=== PATIENT | female | born 1965 | race Hispanic/Latino ===

== ENCOUNTER 2021-08-18 10:16 | Inpatient (IN) | payer MEDICARE ==
[~2021-08-18] VITALS: Ht 152.4 cm; Wt 67.4 kg
[~2021-08-18 10:16] MED LIST: SODIUM CHLORIDE FLUSH 10 ML SYR IV PRN
[2021-08-18] MEDS ORDERED: SODIUM CHLORIDE 0.9% 1000ML 1,000 ML IV ONE (10:30)
[2021-08-18 10:50] LABS: BASOPHILS # (AUTO) 0.1 (0.0-0.1); BASOPHILS % 1.4 % (0.0-1.0); EOSINOPHILS # (AUTO) 0.4 (0.0-0.4); EOSINOPHILS % 5.9 % (0.0-6.0); HEMATOCRIT 36.1 % (34.2-44.1); HEMOGLOBIN 11.3 g/dL (12.0-16.0); LYMPHOCYTES # (AUTO) 1.2 (1.0-3.2); LYMPHOCYTES % 17.4 % (18.0-39.1); MEAN CORPUSCULAR HEMOGLOBIN 30.6 pg (28-32); MEAN CORPUSCULAR HGB CONC 31.3 g/dL (31-35); MEAN CORPUSCULAR VOLUME 97.8 fL (81-99); MONOCYTES # (AUTO) 0.7 (0.2-0.8); MONOCYTES % 9.7 % (4.4-11.3); NEUTROPHILS # (AUTO) 4.6 (2.1-6.9); NEUTROPHILS % 64.9 % (38.7-80.0); PLATELET COUNT 424 x10e3/uL (140-360); RED BLOOD COUNT 3.69 x10e6/uL (3.6-5.1); RED CELL DISTRIBUTION WIDTH 15.8 % (11.7-14.4)
[2021-08-18 11:11] LABS: INR 1.13; PROTHROMBIN TIME 15.5 seconds (11.9-14.5)
[2021-08-18 11:12] LABS: PARTIAL THROMBOPLASTIN TIME 39.7 seconds (23.8-35.5)
[2021-08-18] MEDS ORDERED: LEVOTHYROXINE50 MCG PO (12:51)
[2021-08-18] MEDS ORDERED: CLOPIDOGREL75 MG PO (12:51)
[2021-08-18] MEDS ORDERED: LIPITOR10 MG PO (12:51)
[2021-08-18] MEDS ORDERED: FERROUS SULFAT325 M1 PO (12:51)
[2021-08-18] MEDS ORDERED: METOPROLOL TART25 MG PO (12:51)
[2021-08-18] MEDS ORDERED: GABAPENTIN300 MG PO (12:51)
[2021-08-18] MEDS ORDERED: MIDODRINE HCL2.5 MG PO (12:51)
[2021-08-18 14:09] LABS: ALBUMIN 2.4 g/dL (3.5-5.0); ALBUMIN/GLOBULIN RATIO 0.5 (0.8-2.0); ANION GAP 19.7 mmol/L (8-16); CALCIUM 8.6 mg/dL (8.4-10.2); CREATININE, SERUM 5.53 mg/dL (0.57-1.11); POTASSIUM 5.7 mmol/L (3.5-5.1)
[2021-08-18] MEDS ORDERED: ONDANSETRON HCL INJ 2MG/ML 2ML 2 MG/ML VIAL IV PRN (15:15)
[2021-08-18] MEDS ORDERED: ALBUTEROL SULF 0.083% NEB SOLN 3 ML NEB NEB STA (15:51)
[2021-08-18] MEDS ORDERED: INSULIN REGULAR, HUMAN 100 UNIT/1 ML IV ONE (16:00)
[2021-08-18] MEDS ORDERED: DEXTROSE 50% SYRINGE 50 ML IV ONE (16:00)
[2021-08-18 17:55] VITALS: BP 141/68
[2021-08-18 18:22] VITALS: BP 143/57
[2021-08-18 18:27] VITALS: BP 121/65
[2021-08-18 20:00] VITALS: BP 127/52
[2021-08-18] MEDS ORDERED: norco (22:12)
[2021-08-18] MEDS ORDERED: TEMAZEPAM15 MG PO (22:12)
[2021-08-18] MEDS ORDERED: LANTUS 3ML100 UNITS/ (22:12)
[2021-08-18] MEDS ORDERED: DOCUSATE SODIU100 MG PO (22:12)
[2021-08-18] MEDS ORDERED: CYCLOBENZAPRINE10 MG PO (22:12)
[2021-08-19] VITALS (8 sets, daily range): BP systolic 104–142; BP diastolic 47–85
[2021-08-19] MEDS ORDERED: NORCO SCH
[2021-08-19 05:03] LABS: BASOPHILS # (AUTO) 0.1 (0.0-0.1); BASOPHILS % 1.2 % (0.0-1.0); EOSINOPHILS # (AUTO) 0.4 (0.0-0.4); EOSINOPHILS % 6.5 % (0.0-6.0); HEMATOCRIT 35.6 % (34.2-44.1); HEMOGLOBIN 10.9 g/dL (12.0-16.0); LYMPHOCYTES # (AUTO) 1.3 (1.0-3.2); LYMPHOCYTES % 22.1 % (18.0-39.1); MEAN CORPUSCULAR HEMOGLOBIN 29.9 pg (28-32); MEAN CORPUSCULAR HGB CONC 30.6 g/dL (31-35); MEAN CORPUSCULAR VOLUME 97.5 fL (81-99); MONOCYTES # (AUTO) 0.7 (0.2-0.8); MONOCYTES % 11.4 % (4.4-11.3); NEUTROPHILS # (AUTO) 3.4 (2.1-6.9); NEUTROPHILS % 58.3 % (38.7-80.0); PLATELET COUNT 385 x10e3/uL (140-360); RED BLOOD COUNT 3.65 x10e6/uL (3.6-5.1); RED CELL DISTRIBUTION WIDTH 15.7 % (11.7-14.4)
[2021-08-19 05:41] LABS: ANION GAP 21.5 mmol/L (8-16); CALCIUM 8.5 mg/dL (8.4-10.2); CREATININE, SERUM 5.86 mg/dL (0.57-1.11); POTASSIUM 5.5 mmol/L (3.5-5.1)
[2021-08-19] MEDS: LEVOTHYROXINE SODIUM 50 MCG TAB PO SCH (06:34)
[2021-08-19] MEDS: DOCUSATE SODIUM 100 MG CAP PO SCH ×2 (08:26→17:00)
[2021-08-19] MEDS: METOPROLOL TARTRATE 25 MG TAB PO SCH ×2 (08:27→17:00)
[2021-08-19] MEDS: MIDODRINE 2.5 MG TAB PO SCH ×2 (08:27→17:00)
[2021-08-19] MEDS: GABAPENTIN 300 MG CAP PO SCH ×3 (08:27→21:05)
[2021-08-19] MEDS: FERROUS SULFATE 325 MG TAB PO SCH ×2 (08:28→17:00)
[2021-08-19] MEDS: CLOPIDOGREL BISULFATE 75 MG TAB PO SCH (08:28)
[2021-08-19] MEDS: CYCLOBENZAPRINE HCL 10 MG TAB PO SCH (08:28)
[2021-08-19] MEDS ORDERED: ALBUMIN 25% 25GM 100ML 0.25 GM/ML BTL IV ONE (11:45)
[2021-08-19] MEDS ORDERED: ALBUMIN 25% 12.5GM 50ML 150 ML IV ONE (12:00)
[2021-08-19 16:39] LABS: BODY FLUID APPEARANCE CLOUDY; BODY FLUID COLOR RED; BODY FLUID TYPE PERITONEAL
[2021-08-19] MEDS ORDERED: SODIUM CHLORIDE 0.9% 1000ML 2,000 ML ONE (16:41)
[2021-08-19 16:45] LABS: RBC,BODY FLUID 23000 cells/uL; WBC,BODY FLUID 134 cells/uL
[2021-08-19] MEDS ORDERED: ALBUMIN 25% 12.5GM 0.25 GM/ML BTL IV PRN (16:45)
[2021-08-19] MEDS ORDERED: SODIUM CHLORIDE 0.9% 1000ML 2,000 ML IV PRN (16:45)
[2021-08-19] MEDS ORDERED: SODIUM CHLORIDE 0.9% 250ML 500 ML IV PRN (16:45)
[2021-08-19 18:14] LABS: LYMPHOCYTES,BODY FLUID 3 %; MONO/MACROPHG,BODY FLUID 79 %; NEUTROPHILS,BODY FLUID 2 %
[2021-08-19 18:15] LABS: OTHER CELLS,BODY FLUID 16 %
[2021-08-19] MEDS: TEMAZEPAM 15 MG CAP PO SCH (21:07)
[2021-08-19] MEDS: ATORVASTATIN 10 MG TAB PO SCH (21:07)
[2021-08-20] VITALS (8 sets, daily range): BP systolic 131–140; BP diastolic 51–68
[2021-08-20] MEDS: HYDROCODONE/APAP 7.5MG-325MG 1 EA TAB PO PRN (03:15)
[2021-08-20] MEDS: LEVOTHYROXINE SODIUM 50 MCG TAB PO SCH (08:28)
[2021-08-20] MEDS: MIDODRINE 2.5 MG TAB PO SCH ×2 (10:00→17:00)
[2021-08-20] MEDS: GABAPENTIN 300 MG CAP PO SCH ×3 (10:00→21:36)
[2021-08-20] MEDS: CLOPIDOGREL BISULFATE 75 MG TAB PO SCH (10:00)
[2021-08-20] MEDS: CYCLOBENZAPRINE HCL 10 MG TAB PO SCH (10:00)
[2021-08-20] MEDS: FERROUS SULFATE 325 MG TAB PO SCH ×2 (10:00→21:45)
[2021-08-20] MEDS ORDERED: PIPERONYL BUTOXIDE/PYRETHRINS 118 ML SHAMPOO TP ONE (10:00)
[2021-08-20] MEDS: DOCUSATE SODIUM 100 MG CAP PO SCH ×2 (10:00→21:36)
[2021-08-20] MEDS: METOPROLOL TARTRATE 25 MG TAB PO SCH ×2 (10:00→21:00)
[2021-08-20] MEDS ORDERED: ONDANSETRON HCL 4 MG ORAL DISINTEGRATING TAB PO PRN (14:45)
[2021-08-20] MEDS: TEMAZEPAM 15 MG CAP PO SCH (21:45)
[2021-08-20] MEDS: ATORVASTATIN 10 MG TAB PO SCH (21:45)
[2021-08-21 00:56] VITALS: BP 118/51
[2021-08-21] MEDS: HYDROCODONE/APAP 7.5MG-325MG 1 EA TAB PO PRN (05:37)
[2021-08-21 05:52] VITALS: BP 119/62
[2021-08-21] MEDS: LEVOTHYROXINE SODIUM 50 MCG TAB PO SCH (07:30)
[2021-08-21 07:35] VITALS: BP 133/55
[2021-08-21 08:12] VITALS: BP 133/55
[2021-08-21] MEDS: CYCLOBENZAPRINE HCL 10 MG TAB PO SCH (08:14)
[2021-08-21] MEDS: FERROUS SULFATE 325 MG TAB PO SCH (08:14)
[2021-08-21] MEDS: GABAPENTIN 300 MG CAP PO SCH (08:15)
[2021-08-21] MEDS: CLOPIDOGREL BISULFATE 75 MG TAB PO SCH (08:15)
[2021-08-21] MEDS: DOCUSATE SODIUM 100 MG CAP PO SCH (08:15)
[2021-08-21] MEDS: METOPROLOL TARTRATE 25 MG TAB PO SCH (08:16)
[2021-08-21] MEDS: MIDODRINE 2.5 MG TAB PO SCH (08:16)
[2021-08-21 11:41] VITALS: BP 134/62
== END 2021-08-21 12:35 | DRG 640 ==
LOC: ER 10:25 → ERHOLD 15:17 → MED/SURG2 17:34
PROC: 0W9G3ZZ Drainage of Peritoneal Cavity, Percutaneous Approach (ICD-10-PCS; principal; 2021-08-19)
PROC: 5A1D70Z Performance of Urinary Filtration, Intermittent, Less than 6 Hours Per Day (ICD-10-PCS; 2021-08-19)
DX: E87.5 Hyperkalemia (principal); N18.6 End stage renal disease; R18.8 Other ascites; I13.2 Hypertensive heart and chronic kidney disease with heart failure and with stage 5 chronic kidney disease, or end stage renal disease; I50.9 Heart failure, unspecified; K74.60 Unspecified cirrhosis of liver; E11.22 Type 2 diabetes mellitus with diabetic chronic kidney disease; Z99.2 Dependence on renal dialysis; Z88.5 Allergy status to narcotic agent; D63.1 Anemia in chronic kidney disease; B85.0 Pediculosis due to Pediculus humanus capitis; Z79.4 Long term (current) use of insulin
CPT/HCPCS: 36415; 49083; 71045; 74470; 76700; 80048; 80053; 82040; 82948; 83690; 84157; 84484; 85025; 85610; 85730; 86707; 87070; 87205; 87350; 88112; 88305; 89051; 93005; 99284; C1729; J0610; J1817; J7030; J7799